=== PATIENT | female | born 1960 | race Caucasian/White ===

== ENCOUNTER 2025-07-02 12:03 | Emergency (ER) | payer BC, SELFPAY ==
[2025-07-02] VITALS (22 sets, daily range): BP systolic 148–169; BP diastolic 78–107; PULSE 68–117; RESP 16–18; TEMP 36.5; O2SAT 93–99
--- NOTE | 2025-07-02 12:43 | DI.CT_ITS ---
Exam(s) CT ABDOMEN PELVIS W EXAM: CT ABDOMEN PELVIS W CLINICAL HISTORY: Abdominal distention TECHNIQUE: Imaging Protocol: Axial computed tomography images with coronal and sagittal reformatted images were created and reviewed. CONTRAST MATERIAL: Intravenous: Omnipaque 350 Contrast volume:100 mL Oral: No COMPARISON: No exams were available for comparison FINDINGS: ABDOMEN: Lung Bases: There is a calcified granuloma in the left lower lobe. There is scarring or atelectasis in the right lower lobe. Liver: Normal density. No measurable mass. Portal, Superior Mesenteric, and Splenic Veins: Unremarkable. Gallbladder and Biliary Tract: There is a 3.3 cm gallstone. No gallbladder wall thickening or significant biliary ductal dilatation is present. Pancreas: Normal density, no abnormal calcifications or inflammatory process. Spleen: Normal. Adrenals: No masses seen. Kidneys: Normal size, contour and axis. There is an 8 mm stone in the right UPJ. There is moderate right hydronephrosis. There does appear to be somewhat delayed enhancement of the right kidney compared to the left. The findings are consistent with hydronephrosis. There are bilateral nonobstructing renal calculi. There are no suspicious renal masses. Abdominal Aorta: Abdominal portion non-dilated. Atherosclerotic calcification is present. Bowel: There is diverticulosis of the colon, but no evidence of acute diverticulitis. There is no evidence of bowel obstruction or bowel wall thickening. There is no evidence of appendicitis. There is a moderate size hiatal hernia. Peritoneal Cavity: No ascites, collection or mesenteric inflammatory response. No free air. Lymph Nodes: Within normal limits. Bones: Within normal limits for the patient's age. Soft Tissues: Unremarkable. PELVIS: Bladder: Symmetric distention, no gross wall thickening. Reproductive Organs: There is a large complex multi cystic mass occupying the abdomen and pelvis measuring 30.2 transverse by 17.1 AP by 31.8 craniocaudad cm. There is a 6.2 x 4.1 cm complex cystic and solid internal component to the mass at its posterior and right aspect (series 8, image 83). Primary concern is for an ovarian neoplasm. This may arise from the right ovary. However, due to its size is difficult to identify the source. Lymph Nodes: Within normal limits. Bones: Within normal limits for the patient's age. IMPRESSION: 1. 30.2 x 17.1 x 31.8 cm complex cystic mass. Primary concern is for an ovarian neoplasm. Gynecologic consult is recommended. 2. 8 mm right UPJ stone causing moderate right hydronephrosis. 3. Bilateral nephrolithiasis. 4. Cholelithiasis. 5. Findings were discussed with the Regla Villatoro at 2:27 p.m. on 07/02/2025. RADIATION DOSE DELIVERED: 1,079.87mGy.cm Total DLP DATA REPOSITORY: All CT scans at this facility are submitted to the National Radiology Data Registry (NRDR) Dose Index Registry (DIR) with the [employer] (ACR). RADIATION OPTIMIZATION: All CT scans at this facility use at least one of these dose optimization techniques: automated exposure control; mA and/or kV adjustment per patient size (includes targeted exams where dose is matched to clinical indication); or iterative reconstruction.
--- NOTE | 2025-07-02 13:03 | ED.GENADUL_ITS ---
Discharge Plan Disposition Patient Disposition: Home Condition: Stable Discharge Details Clinical Impression: Mass of right ovary, Kidney stone on right side, Gallstone Primary Care Provider: Klaus Downing ED Provider: Regla Villatoro Home Meds and New Rx's Prescriptions: New tamsulosin 0.4 mg capsule 0.4 mg PO QHS 7 Days Qty: 7 0RF Rx Instructions: Please take 1 capsule by mouth at bedtime for the next 7 days, stop if you become dizzy. No Action ibuprofen 200 MG capsule 400 mg PO PRN PRN ibuprofen 800 MG tablet 800 mg PO Q8H PRN PRNQty: 30 0RF hydrocodone-acetaminophen 1 TAB tablet 1 tab PO Q6H PRN PRNQty: 14 0RF Discharge Instructions Instructions: Ovarian Cancer (DC), Kidney Stone, Adult ED, Gallstones ED Additional Instructions: At this time the CT shows that you have a very large mass possibly stemming from your right ovary this is concerning for possible ovarian cancer. You have an appointment set up with Dr. Maya with [facility] gynecology tomorrow. Her office should be reaching out to you. You also have a kidney stone that is 8 mm causing some backup of fluid into your right kidney. This is probably what is causing your back pain. You were given Tylenol and Toradol 15 mg here in the emergency department today. A prescription for tamsulosin was given to you today for the 8 mm kidney stone that is in your right ureter. Please take Tylenol with food every 4-6 hours as needed for pain and swelling. Please follow-up with [facility] as instructed. Please take the lab work with you to your appointment. Follow up with primary care provider in 3-5 days. Return to ED sooner if any worsening or concerns. Thank you for allowing us to care for you today. Referrals: [facility] [Outside] - 07/03/25 Referral Note: With Dr. Maya [facility] ER follow up. Clinical Impression: Mass of right ovary Rey Cunningham MD [ [facility], Urology] - 2 weeks Referral Note: ER follow up Kidney stone Right UPJ with [place] Clinical Impression: Kidney stone on right side Klaus Downing [Primary Care Provider] Referral Note: Call for an appointment ER follow up HPI General Mode of arrival: ambulatory . Date/Time Provider Initiated Documentation: 07/02/25 12:26 . Limitations to Documentation: no limitations . Information obtained by: patient, RN notes reviewed and old records reviewed . HPI Narrative: 64-year-old female presents to the ER with abdominal distention over the last month. She now reports that it is uncomfortable and radiates into her back. She was sent to the ER for further evaluation from urgent care. Denies any other associated symptoms denies any nausea vomiting diarrhea no fever chills denies any constipation. She does endorse occasional alcohol denies smoking or drugs. She is ANO x 4, no other associated symptoms or signs at this time. She does not take any medications on a regular basis. Related Data Home Medications ?Medication ?Instructions ?Recorded ?Confirmed hydrocodone 5 mg-acetaminophen 325 1 tab PO Q6H PRN AK N #14 tabs 10/19/14 07/02/25 mg tablet Held on 07/02/25. Instructions: Pt Stopped/Never Started ibuprofen 200 mg capsule 400 mg PO PRN PRN 10/19/14 0 07/02/25 Held on 07/02/25. Instructions: Pt Stopped/Never Started ibuprofen 800 mg tablet 800 mg PO Q8H PRN PRN ##30 1 12/20/13 07/02/25 Held on 07/02/25. Instructions: Pt Stopped/Never Started tamsulosin 0.4 mg capsule 0.4 mg PO QHS Kidney stone 7 days 07/02/25 #7 caps Previous Rx's ?Medication ?Instructions ?Recorded hydrocodone 5 mg-acetaminophen 325 1 tab PO Q6H PRN AK N #14 tabs 10/19/14 mg tablet Held on 07/02/25. Instructions: Pt Stopped/Never Started ibuprofen 800 mg tablet 800 mg PO Q8H PRN PRN ##30 1 12/20/13 Held on 07/02/25. Instructions: Pt Stopped/Never Started tamsulosin 0.4 mg capsule 0.4 mg PO QHS Kidney stone 7 days 07/02/25 #7 caps Allergies Allergy/AdvReac Type Severity Reaction Status Date / Time codeine Allergy Severe Anaphylaxis Unverified 07/02/25 13:17 General Stated Complaint: Abd Prob MEG: 3 Review of Systems All systems reviewed & are unremarkable except as noted in HPI and below Cardiovascular Cardiovascular: Denies chest pain and Denies dyspnea Respiratory Respiratory: Denies dyspnea Gastrointestinal Gastrointestinal: Reports abdominal pain (Distention), Reports bloating, Denies hematochezia, Denies constipation, Denies diarrhea, Denies nausea and Denies vomiting Musculoskeletal Musculoskeletal: Reports back pain (Lower back pain) Exam Narrative Exam Narrative: Constitutional: Alert and oriented x3. Appears stated age. Normal body habitus. Head: Normocephalic, no trauma. Eyes: Pupils PERRL, Red reflex noted, EOM's intact. Eyelids symmetrical without lesions, discharge, or swelling. ENT: Bilateral TM's WNL, External ear normal to inspection, no mastoid TTP, swelling, or erythema, Nasal turbinates WNL, no nasal discharge. Normal dentition, Posterior pharynx WNL, no exudate. Chest: RRR, Normal S1, S2, distal pulses intact. Resp: Lungs clear to auscultation bilaterally, no wheezes, rales, or rhonchi. Abdomen: Distended abdomen, hypoactive bowel sounds, enlarged liver palpated, generalized mild tenderness no masses no guarding noted, Musculoskeletal: Normal gait, Moves all 4 extremities without difficulty. Skin: No jaundice, no suspicious rashes or lesions. Capillary refill less than 2 sec. no swelling noted in her lower extremities. Neurologic: Cranial nerves II-XII intact. Alert and oriented x 3. Motor: No deficits noted. Hematologic/Lymphatic: No ecchymosis, no lymphadenopathy. Course Vital Signs Vital signs: Vital Signs Temperature 36.5 C 07/02/25 12:05 Pulse 117 H 07/02/25 12:05 Respiratory Rate 18 07/02/25 12:05 Blood Pressure 162/103 H 07/02/25 12:05 Pulse Oximetry 96 07/02/25 12:05 Temperature 36.5 C 07/02/25 12:05 Temperature Source Oral 07/02/25 12:05 Pulse 117 H 07/02/25 12:05 Respiratory Rate 18 07/02/25 12:05 Blood Pressure 162/103 H 07/02/25 12:05 Pulse Oximetry 96 07/02/25 12:05 Pain Level 3 07/02/25 12:05 Lab/Test Results Lab/Test Results: Laboratory Tests Range/Units 07/02/25 12:26 Conjugated Bilirubin Cancelled Ammonia Cancelled Medical Decision Making 64-year-old female presents to the ER with abdominal distention over the last month. She now reports that it is uncomfortable and radiates into her back. She was sent to the ER for further evaluation from urgent care. Denies any other associated symptoms denies any nausea vomiting diarrhea no fever chills denies any constipation. She does endorse occasional alcohol denies smoking or drugs. She is ANO x 4, no other associated symptoms or signs at this time. She does not take any medications on a regular basis. Workup ordered including CBC CMP PT INR hepatitis panel urinalysis and CT abdomen pelvis with IV contrast. Differential diagnosis includes but not limited to cirrhosis, fatty liver, hepatitis, ascites, bowel obstruction. 1427: Spoke with Dr. Carpenter radiologist regarding patient's CT results please see official report, reports that possible ovarian multicystic mass occupying the abdomen and pelvis measuring 30.2 transverse by 17.1 AP by 31.8 craniocaudad centimeters. There is also a 6.2 x 4.1 cm complex cystic and solid internal component to the mass. Concern for ovarian neoplasm. May arise from the right ovary. Of note also there is an 8 mm stone in the right UPJ which is causing moderate right hydro nephrosis. With bilateral nonobstructing renal calculi. No evidence of diverticulitis. Gallstones noted. Labs are largely unremarkable however there is some leukopenia with a white blood cell count of 3.12, hematocrit 35.7 MCHC is 31.7 and lymphocytes 1.02. Spoke with patient regarding CT results and concerns, she verbalized understanding. 1440: Consulted [facility] Spoke with Dr. Ott she will see her in the clinic on Sunday. She recommends ordering tumor markers Ca125, CEA, Ca199, Orders placed. 1446: Will consult with [facility]Onc. Transfer center contacted. Images pushed. 1512: Dr. Maya with [facility] who can see her tomorrow in clinic and she will reach out to patient for scheduling and fast-track her for further care. Discussed plan of care with patient who verbalized understanding and is in agreement to follow-up with [facility] tomorrow. Will give a copy of her labs to her. I did inform Dr. Ott that patient will be following up with [facility]. This text was generated using Mailgunation system, please disregard any oddities of phrase or misspellings. Lab Data Lab results reviewed: Yes I reviewed the patient's lab results. Labs: Laboratory Tests Range/Units 07/02/25 07/02/25 07/02/25 12:26 13:06 13:22 WBC (4.4-10.8) 10^3/uL 3.12 L RBC (3.93-5.22) 10^6/uL 4.00 Hgb (11.2-15.7) g/dL 11.3 Hct (36.0-46.0) % 35.7 L MCV (80-95) fL 89 MCH (27.0-33.0) pg 28.3 MCHC (32.0-36.0) % 31.7 L RDW (11.7-14.6) % 13.1 Plt Count (130-400) 10^3/uL 217 MPV (8.0-11.0) fL 10.6 Immature Gran % % 0.0 Neutrophils % % 59.7 Lymphocytes % % 32.7 Monocytes % % 4.8 Eosinophils % % 2.2 Basophils % % 0.6 Nucleated RBC % (0.0-0.3) % 0.0 Absolute Neutrophils (1.2-6.7) 10^3/uL 1.86 Absolute Lymphocytes (1.2-3.4) 10^3/uL 1.02 L Absolute Monocytes (0.1-0.8) 10^3/uL 0.15 Absolute Eosinophils (0.0-0.7) 10^3/uL 0.07 Absolute Basophils (0.0-0.2) 10^3/uL 0.02 PT (9.1-11.1) sec 10.1 INR (0.9-1.1) 1.0 Sodium (136-145) mmol/L 141 Potassium (3.5-5.1) mmol/L 3.7 Chloride (98-107) mmol/L 108 H Carbon Dioxide (21.0-32.0) mmol/L 27.7 Anion Gap (3-11) mmol/L 5.3 BUN (7-18) mg/dL 16 Creatinine (0.55-1.02) mg/dL 0.7 Est GFR (CKD-EPI 2020) (mL/min/1.73m2) 97.72 Glucose (74-106) mg/dL 120 H Calcium (8.5-10.1) mg/dL 9.9 Magnesium (1.8-2.4) mg/dL 2.0 Total Bilirubin (0.2-1.0) mg/dL 0.3 Conjugated Bilirubin Cancelled AST (15-37) U/L 12 L ALT (14-59) U/L 22 Alkaline Phosphatase (46-116) U/L 76 Ammonia Cancelled Total Protein (6.4-8.2) g/dL 7.3 Albumin (3.4-5.0) g/dL 3.7 Lipase (<78) U/L 23 PFSH All Active Problems (Updated 07/02/25 @ 15:24 by Regla Villatoro NP) Gallstone (Acute) Kidney stone on right side (Acute) Mass of right ovary (Acute) Social History Smoking/Tobacco Use Status: Former Tobacco Use Smoking risk assessment performed?: Yes Alcohol Intake: current Alcohol Intake frequency: holidays/special occasions only Drug use: Occasionally Substance use type: marijuana Housing: house Do you feel safe at home: Yes Do you feel safe in your relationship?: Yes
[2025-07-02 13:19] LABS: Abs Immature Grans 0.00 10^3/uL (0.0-0.06); HCT 35.7 % (36.0-46.0); HGB 11.3 g/dL (11.2-15.7); Immature Grans % 0.0 %; MCH 28.3 pg (27.0-33.0); MCHC 31.7 % (32.0-36.0); MCV 89 fL (80-95); MPV 10.6 fL (8.0-11.0); Platelet Count 217 10^3/uL (130-400); RBC 4.00 10^6/uL (3.93-5.22); RDW 13.1 % (11.7-14.6); RDW-SD 43.3 fL; WBC 3.12 10^3/uL (4.4-10.8)
[2025-07-02 13:40] LABS: ALT 22 U/L (14-59); AST 12 U/L (15-37); Albumin 3.7 g/dL (3.4-5.0); Alkaline Phosphatase 76 U/L (46-116); Anion Gap 5.3 mmol/L (3-11); BUN 16 mg/dL (7-18); Bilirubin, Total 0.3 mg/dL (0.2-1.0); CO2 27.7 mmol/L (21.0-32.0); Calcium 9.9 mg/dL (8.5-10.1); Chloride 108 mmol/L (98-107); Estimated GFR 97.72 (mL/min/1.73m2); Glucose 120 mg/dL (74-106); Lipase 23 U/L (<78); Magnesium 2.0 mg/dL (1.8-2.4); Potassium 3.7 mmol/L (3.5-5.1); Sodium 141 mmol/L (136-145); Total Protein 7.3 g/dL (6.4-8.2)
[2025-07-02] MEDS: Normal Saline - Diluent 50 ML VIAL IJ (13:57)
[2025-07-02] MEDS: Normal Saline Flush 10 ML SYR IVP (13:57)
[2025-07-02] MEDS: Omnipaque 350 MG/ML 100 ML BTL IJ (13:57)
[2025-07-02 14:05] LABS: INR 1.0 (0.9-1.1); Prothrombin Time 10.1 sec (9.1-11.1)
[2025-07-02 14:34] LABS: Glucose Negative (Negative)
[2025-07-02 14:43] LABS: C & S Indicated? No; WBC 0-2 HPF (0-5)
[2025-07-02] MEDS: Acetaminophen 500 MG TAB 1000 MG PO (15:33)
[2025-07-02] MEDS: Ketorolac 15 MG/ML VIAL IVP (15:37)
[2025-07-02 22:14] LABS: CEA 1.1 ng/mL (See Note)
[2025-07-02 22:46] LABS: CA 125 29 U/mL (<30)
[2025-07-02 22:57] LABS: Hepatitis A Antibody IgM Negative (Negative); Hepatitis C Ab w Rflx HCV PCR Negative (Negative)
[2025-07-03 08:46] LABS: CA 19-9 9 U/mL (<35)
== END 2025-07-02 16:03 | disposition home or self-care (01) ==
PROVIDERS: Emergency Provider Registered Nurse Emergency; PCP Family Medicine
DX: N20.0 Calculus of kidney (principal); K80.20 Calculus of gallbladder without cholecystitis without obstruction; N83.8 Other noninflammatory disorders of ovary, fallopian tube and broad ligament
CPT/HCPCS: 36415; 80053; 80076; 83690; 86304; 86704; 86709; 86803; 87340; 96374; 74177; 81003; 81015; 82140; 82378; 83735; 85025; 85610; 86301; 99284; 99285; J1885; J3490